=== PATIENT | female | born 1995 | race Caucasian/White ===

== ENCOUNTER 2017-09-02 19:46 | Emergency (ER) | payer SELFPAY ==
--- NOTE | 2017-09-02 20:20 | PDOC ---
Rapid Medical Evaluation Time Seen by Provider: 09/02/17 20:15 Medical Evaluation: I have performed a brief in-person evaluation of this patient. The patient presents with a chief complaint of: sore throat and tired x 3 days Pertinent physical exam findings: erythematous tonsils b/l without exudate. tender right cervical lymphadenopathy I have ordered the following: hcg, rapid strep The patient will proceed to the ED for further evaluation.
[2017-09-02 20:24] VITALS: BP 143/94; PULSE 100; TEMP 98.6; BMI 27.8
--- NOTE | 2017-09-02 21:43 | PDOC ---
History of Present Illness - General Stated Complaint: PAIN Time Seen by Provider: 09/02/17 20:15 History Source: Patient Exam Limitations: No Limitations - History of Present Illness Initial Comments: 09/02/17 21:30 This a 22-year-old male without significant past medical history presents emergency Department with sore throat for 2 days. Patient is also concerned that she feels a "ball" on the left side of her throat. She endorses painful swallowing. She denies rhinorrhea, cough, fevers, headaches, chest pain, shortness of breath. Past History - Past Medical History Home Medications: Ambulatory Orders NK [No Known Home Medication] 09/02/17 COPD: No Thyroid Disease: Yes (hypothyroid) - Suicide/Smoking/Psychosocial Hx Smoking History: Never smoked Information on smoking cessation initiated: No Hx Alcohol Use: No Drug/Substance Use Hx: No Substance Use Type: None *Physical Exam - Vital Signs Last Vital Signs Temp Pulse Resp BP Pulse Ox 98.6 F 100 H 20 143/94 100 09/02/17 20:18 09/02/17 20:18 09/02/17 20:18 09/02/17 20:18 09/02/17 20:18 ED Treatment Course - ADDITIONAL ORDERS Additional order review: Laboratory Results 09/02/17 20:23 Urine HCG, Qual Negative 09/02/17 20:21 Group A Strep Rapid Antigen - Final Throat Medical Decision Making - Medical Decision Making 09/02/17 21:32 A/P: This a 22-year-old male without significant past medical history presents emergency Department with sore throat for 2 days. Patient is also concerned that she feels a "ball" on the left side of her throat. She endorses painful swallowing. She denies rhinorrhea, cough, fevers, headaches, chest pain, shortness of breath. Examination of the oropharynx reveals tonsillar erythema. No exudates are noted. There is no cobblestoning. Patient with tender anterior cervical lymph nodes on the left side. There is no stridor auscultated. Lungs clear to auscultation bilaterally. Abdomen soft nontender nondistended. Given Centor score of 3, rapid strep testing is indicated. Diagnosis upper respiratory infection versus streptococcal pharyngitis Rapid strep testing is negative for group A strep. I'll give the patient Decadron 10 mg by mouth and discharged patient with strict return precautions and follow-up at [facility]. *DC/Admit/Observation/Transfer Diagnosis at time of Disposition: Pharyngitis Qualifiers: Pharyngitis/tonsillitis etiology: unspecified etiology Qualified Code(s): J02.9 - Acute pharyngitis, unspecified - Discharge Dispostion Disposition: HOME Condition at time of disposition: Stable Admit: No - Referrals Referrals: Rob Roldan MD [Staff Physician] - - Patient Instructions Additional Instructions: Rest, drink lots of fluids: Teas, water, soups, Pedialyte Saltwater gargles Steamy showers/seem to face break up mucus Avoid contact with others until fevers and cough resolved Lots of handwashing and good hygiene Continue [id number] medications for symptomatic relief Tylenol or Motrin for fever and pain Followup with private physician in one to 2 days as needed Return to emergency department for worsened symptoms, fevers, dehydration - Post Discharge Activity
[2017-09-02] MEDS ORDERED: DEXAMETHASONE LIQUID 0.5 MG/5 ML 240 ML BULK BOTTLE PO ONE (21:44)
[2017-09-02] MEDS ORDERED: DEXAMETHASONE SOD PHOSPHATE 10 MG/1 ML VIAL ONE (21:47)
== END 2017-09-02 21:54 | disposition home or self-care (01) ==
LOC: JER 19:46 → JERFT 19:46
DX: J02.9 Acute pharyngitis, unspecified (principal); R59.0 Localized enlarged lymph nodes
CPT/HCPCS: 84703; 87070; 87430; 99281-25